=== PATIENT | female | born 1985 | race Caucasian/White ===

== ENCOUNTER → 2016-05-12 | Outpatient (CLI) | payer OTHER ==
[~2016-05-12] MED LIST: ACET50TA PO; ANUS2.5C2 TOP; DOCU10ELUD PO; IBUP600T26 PO; MOM30SS PO; PRENTAB74 PO
[2016-05-12 19:00] LABS: PROLACTIN 6.2 NG/ML
[2016-05-12 19:24] LABS: FREE T4 0.91 NG/DL (0.76-1.46)
== END ==
LOC: M WUC 14:31
PROVIDERS: ATTEND Nurse Practitioner Women's Health
DX: N92.1 Excessive and frequent menstruation with irregular cycle (principal)

== ENCOUNTER → 2016-12-22 | Outpatient (REF) | payer OTHER | LOC: M LAB REF 12:04 | PROVIDERS: ATTEND Physician Assistant | DX: N39.0 Urinary tract infection, site not specified (principal) ==

== ENCOUNTER → 2017-01-13 | Outpatient (CLI) | payer OTHER ==
--- NOTE | 2017-01-13 09:57 | REP ---
Clinical: Chronic sinusitis. Technique: Rubio, Chow, lateral, and SMV views. Findings: Paranasal sinuses are well aerated and clear. No mucosal thickening or fluid levels are appreciated. The surrounding osseous structures are intact. Impression: Normal sinus radiograph series. Signed by Silver Vu MD 01/13/2017 09:48 A
== END ==
LOC: M WUC 08:43
PROVIDERS: ATTEND Nurse Practitioner Adult Health
DX: J32.9 Chronic sinusitis, unspecified (principal)

== ENCOUNTER → 2017-02-15 | Outpatient (REF) | payer OTHER | LOC: M LAB REF 17:51 | PROVIDERS: ATTEND Obstetrics & Gynecology | DX: Z11.3 Encounter for screening for infections with a predominantly sexual mode of transmission (principal) ==

== ENCOUNTER → 2017-02-24 | Outpatient (CLI) | payer OTHER | LOC: M RAD 12:15 | DX: R10.2 Pelvic and perineal pain (principal) ==

== ENCOUNTER → 2017-04-17 | Outpatient (CLI) | payer OTHER | LOC: M RAD 10:00 | DX: N83.209 Unspecified ovarian cyst, unspecified side (principal) | CPT/HCPCS: 76856 ==

== ENCOUNTER → 2017-07-03 | Outpatient (REF) | payer OTHER ==
[2017-07-06 14:15] LABS: HPV HYBRID CAPTURE II Negative (Negative)
== END ==
LOC: M LAB REF 19:15
DX: Z12.4 Encounter for screening for malignant neoplasm of cervix (principal); R87.612 Low grade squamous intraepithelial lesion on cytologic smear of cervix (LGSIL)

== ENCOUNTER → 2017-07-11 | Outpatient (REF) | payer OTHER | LOC: M LAB REF 17:28 | DX: R87.612 Low grade squamous intraepithelial lesion on cytologic smear of cervix (LGSIL) (principal) | CPT/HCPCS: 88304 ==

== ENCOUNTER → 2018-06-29 | Outpatient (REF) | payer OTHER ==
[~2018-06-29] MED LIST changes: -ACET50TA PO; -DOCU10ELUD PO; +DOCU5LIQ PO; +MAPA500T17 PO
== END ==
LOC: M LAB REF 10:41
PROVIDERS: ATTEND Physician Assistant Medical
DX: R10.9 Unspecified abdominal pain (principal)

== ENCOUNTER → 2018-08-03 | Outpatient (REF) | payer OTHER ==
[2018-08-08 00:07] LABS: HPV HYBRID CAPTURE II Negative (Negative)
== END ==
LOC: M LAB REF 17:33
PROVIDERS: ATTEND Obstetrics & Gynecology
DX: Z12.4 Encounter for screening for malignant neoplasm of cervix (principal)

== ENCOUNTER → 2018-08-03 | Outpatient (CLI) | payer OTHER ==
[2018-08-03 21:11] LABS: CHLAMYDIA DNA AMPLIFICATION NEGATIVE (NEGATIVE); GC DNA AMPLIFICATION NEGATIVE (NEGATIVE)
[2018-08-03 23:00] LABS: HIV 1&2 SCREEN CENTAUR NEGATIVE (NEGATIVE)
[2018-08-06 11:33] LABS: HEPATITIS A ANTIBODY IGM NEGATIVE (NEGATIVE); HEPATITIS B CORE ANTIBODY IGM NEGATIVE (NEGATIVE); HEPATITIS B SURFACE ANTIGEN NEGATIVE (NEGATIVE); HEPATITIS C VIRUS ABY INDEX < 0.0 INDEX (<0.8)
== END ==
LOC: M SMT 14:36
PROVIDERS: ATTEND Obstetrics & Gynecology
DX: Z11.3 Encounter for screening for infections with a predominantly sexual mode of transmission (principal)

== ENCOUNTER → 2019-05-09 | Outpatient (CLI) | payer OTHER | LOC: M WHC 12:28 | PROVIDERS: ATTEND Obstetrics & Gynecology | DX: R10.2 Pelvic and perineal pain (principal) ==

== ENCOUNTER → 2019-05-09 | Outpatient (REF) | payer OTHER ==
[2019-05-10 00:54] LABS: CHLAMYDIA DNA AMPLIFICATION NEGATIVE (NEGATIVE); GC DNA AMPLIFICATION NEGATIVE (NEGATIVE)
== END ==
LOC: M SFHCWAGY 18:20
PROVIDERS: ATTEND Obstetrics & Gynecology
DX: R10.2 Pelvic and perineal pain (principal)

== ENCOUNTER → 2019-05-16 | Outpatient (CLI) | payer OTHER ==
--- NOTE | 2019-05-16 20:46 | REP ---
Clinical: Pelvic pain. Technique: Transabdominal pelvic ultrasound followed by transvaginal examination for better evaluation of the endometrium and adnexa with color evaluation of the ovaries. 3-D sonographic images obtained. Comparison: 04/17/2017. Findings: Normal anteverted uterus measures 8.8 x 3.7 x 5.0 cm. Endometrial complex measures 4.3 mm thickness. No discrete uterine or endometrial abnormalities appreciated. IUD identified in central satisfactory position based on 3-D imaging. Bilateral ovaries are normal in vascularity without torsion. Right ovary measures 3.3 x 2.0 x 1.8 cm and appears normal. Left ovary measures 4.5 x 2.2 x 3.4 cm and includes 2.6 x 1.4 x 2.0 cm presumed physiologic cyst / follicle. No pelvic fluid or adnexal mass lesion. Impression: Normal uterus with IUD in satisfactory position. Involuting physiologic cyst / dominant follicle in the left ovary. Electronically Signed by Silver Vu MD 05/16/2019 08:37 P
== END ==
LOC: M WHC 09:24
PROVIDERS: ATTEND Obstetrics & Gynecology
DX: N83.02 Follicular cyst of left ovary (principal); Z97.5 Presence of (intrauterine) contraceptive device

== ENCOUNTER → 2019-08-07 | Outpatient (REF) | payer OTHER | LOC: M SFHCWAGY 17:53 | PROVIDERS: ATTEND Obstetrics & Gynecology | DX: Z01.419 Encounter for gynecological examination (general) (routine) without abnormal findings (principal); Z12.4 Encounter for screening for malignant neoplasm of cervix ==

== ENCOUNTER 2020-11-05 03:49 | Emergency (ER) | payer BC, OTHER ==
[~2020-11-05] VITALS: Ht 157.5 cm; Wt 79.2 kg
[2020-11-05 09:46] LABS: BASO # 0.1 10^3/uL (0.0-0.2); BASO % 0.8 % (0.0-1.0); EOS # 0.2 10^3/uL (0.0-0.5); EOS % 1.6 % (0.0-3.0); HEMATOCRIT 38.7 % (36.0-47.0); LYMPH # 1.8 10^3/uL (1.5-5.0); LYMPH % 17.6 % (24.0-44.0); MEAN CORPUSCULAR HEMOGLOBIN 31.6 pg (27.0-33.0); MEAN CORPUSCULAR HGB CONC 33.6 g/dl (32.0-36.5); MEAN CORPUSCULAR VOLUME 93.9 fl (80.0-96.0); MONO # 0.9 10^3/uL (0.0-0.8); MONO % 8.9 % (2.0-8.0); NEUTROPHILS # 7.4 10^3/uL (1.5-8.5); NEUTROPHILS % 70.7 % (36.0-66.0); PLATELET COUNT, AUTOMATED 213 10^3/uL (150-450); RED BLOOD COUNT 4.12 10^6/uL (4.00-5.40); WHITE BLOOD COUNT 10.5 10^3/uL (4.0-10.0)
--- NOTE | 2020-11-05 10:05 | REP ---
INDICATION: lower abd pain, h/o ovarian cysts. COMPARISON: 05/16/2019. TECHNIQUE: Transabdominal and transvaginal scanning performed. FINDINGS: Uterine dimensions are 8.2 x 4.8 x 5.5 cm. Endometrial echo is 3 mm in AP dimension and centrally placed. IUD is seen in the superior endometrial canal. The bladder measures 3.9 x 3.4 x 9.6cm. The right ovary has dimensions of 3.0 x 1.5 x 2.0 cm. It's Doppler flow is normal with a resistive index of 0.81. The left ovary dimensions are 4.6 x 3.5 x 4.6 cm. It's Doppler flow was normal with resistive index of 0.39. There is a mildly heterogeneous, mildly hyperechoic mass involving the left ovary, measuring 4.4 x 3.2 x 4.1 cm. No free fluid is seen in the cul-de-sac. IMPRESSION: No torsion or free fluid. There is a mildly heterogeneous, mildly hyperechoic mass involving the left ovary, measuring 4.4 x 3.2 x 4.1 cm. Differential diagnosis would include hemorrhagic cyst and endometrioma. This is new when compared to the prior exam. Recommend follow-up ultrasound in 6-12 weeks. <Electronically signed by Maycol Hernandez > 11/05/20 1002
[2020-11-05 10:09] LABS: ALBUMIN 3.8 GM/DL (3.2-5.2); ALT/SGPT 35 U/L (12-78); BILIRUBIN,DIRECT 0.3 MG/DL (0.0-0.2); BILIRUBIN,TOTAL 1.2 MG/DL (0.2-1.0); BLOOD UREA NITROGEN 9 MG/DL (7-18); CALCIUM LEVEL 9.2 MG/DL (8.5-10.1); CARBON DIOXIDE LEVEL 28 MEQ/L (21-32); CHLORIDE LEVEL 109 MEQ/L (98-107); CREATININE FOR GFR 0.54 MG/DL (0.55-1.30); GLOMERULAR FILTRATION RATE > 60.0 (>60); GLUCOSE, FASTING 88 MG/DL (70-100); LIPASE 63 U/L (73-393); SODIUM LEVEL 140 MEQ/L (136-145); TOTAL PROTEIN 6.9 GM/DL (6.4-8.2)
--- NOTE | 2020-11-05 10:19 | REP ---
INDICATION: r/o constipation. COMPARISON: None. TECHNIQUE: KUB: Two views provided. FINDINGS: Supine views of the abdomen demonstrate an IUD in the pelvis. Bowel gas pattern is normal. Flank stripes are intact. Psoas margins appear symmetric. No mass, organomegaly, or pathologic calcification is seen. There are phleboliths in the left side of the pelvis. Umbilical jewelry is noted incidentally. IMPRESSION: Negative KUB. There is no radiographic evidence to suggest constipation. <Electronically signed by Nathaniel Douglas > 11/05/20 0718
[2020-11-05] MEDS ORDERED: ONDA4TAB6 PO (11:27)
[2020-11-05] MEDS ORDERED: COLA100C5 PO (11:27)
[2020-11-05 11:37] VITALS: BP 109/64
== END 2020-11-05 11:44 | disposition home or self-care (01) ==
LOC: M ED 03:49
DX: N83.202 Unspecified ovarian cyst, left side (principal); E80.6 Other disorders of bilirubin metabolism; N80.9 Endometriosis, unspecified; Z87.448 Personal history of other diseases of urinary system; Z86.16 Personal history of COVID-19; F32.9 Major depressive disorder, single episode, unspecified; Z97.5 Presence of (intrauterine) contraceptive device; Z88.2 Allergy status to sulfonamides

== ENCOUNTER → 2020-11-16 | Outpatient (REF) | payer BC ==
[~2020-11-16] MED LIST changes: +COLA100C5 PO; +ONDA4TAB6 PO
== END ==
LOC: M SFHCWAGY 13:17
PROVIDERS: ATTEND Obstetrics & Gynecology
DX: Z12.4 Encounter for screening for malignant neoplasm of cervix (principal); Z01.419 Encounter for gynecological examination (general) (routine) without abnormal findings; Z77.9 Other contact with and (suspected) exposures hazardous to health

== ENCOUNTER → 2020-11-23 | Outpatient (REF) | payer BC ==
[2020-11-23 18:38] LABS: HEMATOCRIT 39.8 % (36.0-47.0); HEMOGLOBIN 13.3 g/dl (12.0-15.5); MEAN CORPUSCULAR HEMOGLOBIN 31.7 pg (27.0-33.0); MEAN CORPUSCULAR HGB CONC 33.4 g/dl (32.0-36.5); MEAN CORPUSCULAR VOLUME 94.8 fl (80.0-96.0); PLATELET COUNT, AUTOMATED 244 10^3/uL (150-450); WHITE BLOOD COUNT 7.5 10^3/uL (4.0-10.0)
[2020-11-23 19:13] LABS: ALT/SGPT 21 U/L (12-78); BILIRUBIN,TOTAL 0.6 MG/DL (0.2-1.0); BLOOD UREA NITROGEN 17 MG/DL (7-18); CALCIUM LEVEL 9.4 MG/DL (8.5-10.1); CARBON DIOXIDE LEVEL 32 MEQ/L (21-32); CHLORIDE LEVEL 105 MEQ/L (98-107); CREATININE FOR GFR 0.77 MG/DL (0.55-1.30); FERRITIN 52 NG/ML (8-252); GLOMERULAR FILTRATION RATE > 60.0 (>60); GLUCOSE, FASTING 96 MG/DL (70-100); IRON (FE) 84 UG/DL (50-170); PERCENT SATURATION 27.9 % (13.2-45.0); POTASSIUM SERUM 4.4 MEQ/L (3.5-5.1); SODIUM LEVEL 138 MEQ/L (136-145); TOTAL IRON BINDING CAPACITY 301 UG/DL (250-450); TOTAL PROTEIN 7.1 GM/DL (6.4-8.2)
== END ==
LOC: M SFHCADAM 13:55
PROVIDERS: ATTEND Physician Assistant
DX: R79.9 Abnormal finding of blood chemistry, unspecified (principal); D50.8 Other iron deficiency anemias; R53.83 Other fatigue

== ENCOUNTER → 2020-12-30 | Outpatient (CLI) | payer BC ==
[~2020-12-30] MED LIST changes: +MIRE1IUD IU; +VITMTA PO
== END ==
LOC: M LABSMTC 09:58
PROVIDERS: ATTEND Anesthesiology
DX: Z01.818 Encounter for other preprocedural examination (principal); Z11.52 Encounter for screening for COVID-19

== ENCOUNTER 2021-01-04 06:16 | Day surgery (SDC) | payer BC ==
[~2021-01-04] VITALS: Ht 157.5 cm; Wt 76.7 kg
[~2021-01-04 06:16] MED LIST changes: +LIDOCAINE 1% MDV 20ML VIAL SQ PRN; +LR 1,000 ML IV ONE; +ceFAZolin SOD 2 GM in IV 1 EA IV ONE
--- OUTSIDE RECORDS SUMMARY | 2021-01-04 06:20 | CCD ---
Author Author [facility] Organization [facility] Address Unknown Phone Unavailable Care Team Providers Care Biosolids Management Technician Name Role Phone Judy Schultz Unavailable PROBLEMS Type Condition ICD9-CM Code [id number] Code Onset Dates Condition S tatus W/U Status Risk SNOMED Code Notes Problem Annual physical exam Z00.00 Active confirmed 602726528 Problem Iron deficiency anemia secondary to inadequate d ietary iron intake D50.8 Active confirmed 243875657 CBC and iron l evels are within normal limits Problem Bleeding after intercourse N93.0 Active confirmed 61868831 Problem Dyspareunia due to medical condition in female N94 .19 Active confirmed 88906701 ALLERGIES Allergen (clinical drug ingredient) Drug/Non Drug Allergy do cumented on EMR Reaction Allergy Type Onset Date Status Sulfa drugs hives Non Drug Allergy Active ENCOUNTERS from 1986 to 2020-11-30 Encounter Location Date Provider Diagnosis [facility] [phone] [place] [address] Oct, [facility] Gynecologic exam nor mal Z01.419 ; Pelvic pain R10.2 ; Dyspareunia due to medical condition in female N94.19 and Screening for malignant neoplasm of cervix Z12.4 IMMUNIZATIONS No Information SOCIAL HISTORY Tobacco Use: Social History Observation Description Date Details (start date - stop date) Never Smoker Sex Assigned At : Social History Observation Description Sex Assigned At Unknown Education: Question Answer Notes Level of Education: High School Audit Question Answer Notes Total Score: 1 Interpretation: Alcohol Education Language: Question Answer Notes Languages spoken: Albanian Drug and Alcohol Question Answer Notes Total Score: 0 Interpretation: No problems reported Alcohol Screening: Question Answer Notes Did you have a drink containing alcohol in the past year? Ye s Points 1 Interpretation Negative How often did you have six or more drinks on one occas ion in the past year? Never (0 points) How many drinks did you have on a typica l day when you were drinking in the past year? 3 or 4 (1 point) How often did you have a drink containing alcohol in t he past year? Never (0 points) Tobacco Use: Question Answer Notes Are you a: never smoker REASON FOR REFERRAL No Information VITAL SIGNS Weight 177.6 lbs Oct, Weight-kg 80.56 kg Oct, Height 62 in Oct, BMI 32.48 kg/m2 Oct, Blood pressure systolic 128 mm Hg Oct, Blood pressure diastolic 86 mm Hg Oct, MEDICATIONS Medication SIG (Take, Route, Frequency, Duration) Notes Start Da te End Date Status Multi Complete - 1 cap orally Daily Active Colace 100 MG 1 capsule as needed Orally Once a day Active Hair Skin Nails - 1 cap Orally Daily Not-Taking Tylenol 325 MG 1 capsule as needed Orally every 6 hrs Active ZyrTEC Allergy 10 MG 1 tablet Orally Once a day for 30 day(s) Active Meloxicam 15 MG 1 tablet Orally Once a day for 30 day(s) 2 5 Mar, 2020 Not-Taking Mirena Active Ibuprofen 400 MG 1 tablet with food or milk as needed Ora lly Three times a day Active PROCEDURES No Information RESULTS No Results REASON FOR VISIT annual MEDICAL (GENERAL) HISTORY Type Description Date Medical History asthma Medical History seasonal allergies Medical History depression Surgical History wrist surgery cyst removal, this came [place] [facility] [place]note 2[place] back. 2004 Hospitalization History childbirth 2012 Goals Section No Information Health Concerns No Information MEDICAL EQUIPMENT No Information MENTAL STATUS No Information FUNCTIONAL STATUS No Information ASSESSMENTS Encounter Date Diagnosis Assessment Notes Treatment Notes Treatm ent Clinical Notes Oct, Gynecologic exam normal (ICD-10 - Z01.419) Oct, Pelvic pain (ICD-10 - R10.2) Patient was counseled on treatment options for chronic pelvic pain/dyspareunia. She expressed desire no longer medical management with Mirena IUD as this has been unable to control her pain. She is adamant about proceeding with hysterectomy without BSO. I discussed risk with surgery and after consultation patient desires to proceed with hysterectomy Oct, Dyspareunia due to medical condition in female ( ICD-10 - N94.19) Oct, Screening for malignant neoplasm of cervix (ICD- 10 - Z12.4) PLAN OF TREATMENT Treatment Notes Assessment Notes Clinical Notes Pelvic pain Patient was counsele d on treatment options for chronic pelvic pain/dyspareunia. She expressed desire no longer medical management with Mirena IUD as this has been unable to control her pain. She is adamant about proceeding with hysterectomy without BSO. I discussed risk with surgery and after consultation patient desires to proceed with hysterectomy Treatment Notes Test Name Order Date PAP REQUEST FOR SERVICE 2020-11-16 Next Appt Details Provider Name:Judy Schultz, 2020-12-23 1 1:20:00 AM, [address] [facility], , [place], [address], Provider Name:Yeni Martino, 2021-04-08 09:30:00 AM, [address], , [place], [address], Insurance Providers Payer Name Payer Address Payer Phone Insured Name Patient Relati onship to Insured Coverage Start Date [facility]age End Date [facility] [address] [facility] [id number] [place] self
--- OUTSIDE RECORDS SUMMARY | 2021-01-04 06:20 | CCD ---
Author Author [facility] Organization [facility] Address Unknown Phone Unavailable Care Team Providers Care Supervisor Felling Bucking Name Role Phone Yeimy Garcia Unavailable PROBLEMS Type Condition ICD9-CM Code [id number] Code Onset Dates Condition S tatus W/U Status Risk SNOMED Code Notes Problem Annual physical exam Z00.00 Active confirmed 849739103 Problem Iron deficiency anemia secondary to inadequate d ietary iron intake D50.8 Active confirmed 875493460 CBC and iron l evels are within normal limits Problem Bleeding after intercourse N93.0 Active confirmed 96964325 Problem Dyspareunia due to medical condition in female N94 .19 Active confirmed 44086664 ALLERGIES Allergen (clinical drug ingredient) Drug/Non Drug Allergy do cumented on EMR Reaction Allergy Type Onset Date Status Sulfa drugs hives Non Drug Allergy Active ENCOUNTERS from 1986 to 2020-11-29 Encounter Location Date Provider Diagnosis [address] [place] [address] Oct, Yeimy Garcia Abnormal blood chemistry R79.9 ; Ovarian mass N83.8 ; Iron deficiency anemia secondary to inadequate dietary iron intake D50.8 and Fatigue, unspecified type R53.83 IMMUNIZATIONS No Information SOCIAL HISTORY Tobacco Use: Social History Observation Description Date Details (start date - stop date) Never Smoker Sex Assigned At : Social History Observation Description Sex Assigned At Unknown Education: Question Answer Notes Level of Education: High School Audit Question Answer Notes Total Score: 1 Interpretation: Alcohol Education Language: Question Answer Notes Languages spoken: Rwandan Drug and Alcohol Question Answer Notes Total [...] FOR REFERRAL No Information VITAL SIGNS Weight 175 lbs Oct, Height 62 in Oct, BMI 32.00 kg/m2 Oct, Heart Rate 64 /min Oct, Respiratory Rate 18 /min Oct, Temperature 98.7 degrees Fahrenheit Oct, Oximetry 100 Oct, Blood pressure systolic 118 mm Hg Oct, Blood pressure diastolic 68 mm Hg Oct, MEDICATIONS Medication SIG (Take, [...] Information RESULTS No Results REASON FOR VISIT [facility] ER/ hemorrage cyst and bilinrubin levels high MEDICAL (GENERAL) HISTORY Type Description Date Medical History asthma Medical History seasonal allergies Medical History depression Surgical History wrist surgery cyst removal, [facility]. 2004 Hospitalization History childbirth 2012 Goals Section No Information Health Concerns No Information MEDICAL EQUIPMENT No Information MENTAL STATUS No Information FUNCTIONAL STATUS No Information ASSESSMENTS Encounter Date Diagnosis Assessment Notes Treatment Notes Treatm ent Clinical Notes Oct, Abnormal blood chemistry (ICD-10 - R79.9 ) The bilirubin is borderline elevated, and we have rechecked that today and it is back at goal Oct, Ovarian mass (ICD-10 - N83.8) She will follow-up with her DIE STORAGE CLERK Oct, Iron deficiency anemia secfelisha freida to inadequate dietary iron intake (ICD-10 - D50.8) CBC and iron levels are within normal limits Oct, Fatigue, unspecified type (ICD-10 - R53. 83) Blood work reveals no thyroid issues, no anemia, and all normal blood work. She will discuss the fatigue with her PCP PLAN OF TREATMENT Treatment Notes Test Name Order Date Comprehensive Metabolic Profile (CMP) 2020-11-23 CBC - Complete Blood Count 2020-11-23 TOTAL IRON BINDING CAPACIT 2020-11-23 TSH 2020-11-23 FERRITIN 2020-11-23 Next Appt Details With DIE STORAGE CLERK and PCP Reason: Provider Name:Judy Schultz, 2020-12-23 1 1:20:00 AM, [address] [facility], , [place], [address], Provider Name:Yeni Martino, 2021-04-08 09:30:00 AM, [address], , [place], [address], Insurance Providers Payer Name Payer Address Payer Phone Insured Name Patient Relati onship to Insured Coverage Start Date Coverage End Date [facility] [employer] ALLIANCE [id number] [facility] [id number] [place] [employer] self
--- OUTSIDE RECORDS SUMMARY | 2021-01-04 06:20 | CCD ---
Author Author [facility] Organization [facility] Address Unknown Phone Unavailable Care Team Providers Care Barbering Teacher Name Role Phone Antoine Judy Unavailable PROBLEMS Type Condition ICD9-CM Code [id number] Code Onset Dates Condition S tatus W/U Status Risk SNOMED Code Notes Problem Annual physical exam Z00.00 Active confirmed 029078569 Problem Iron deficiency anemia secondary to inadequate d ietary iron intake D50.8 Active confirmed 075004791 CBC and iron l evels are within normal limits Problem Bleeding after intercourse N93.0 Active confirmed 38714633 Problem Dyspareunia due to medical condition in female N94 .19 Active confirmed 52329218 ALLERGIES Allergen (clinical drug ingredient) Drug/Non Drug Allergy do cumented on EMR Reaction Allergy Type Onset Date Status Sulfa drugs hives Non Drug Allergy Active ENCOUNTERS from 1986 to 2020-12-03 Encounter Location Date Provider Diagnosis [facility] Women[facility] Wellness and [facility] [phone] [place] [address] Nov, [facility] IMMUNIZATIONS No Information SOCIAL HISTORY Tobacco Use: Social History Observation Description Date Details (start date - stop date) Never Smoker Sex Assigned At : Social History Observation Description Sex Assigned At Unknown Education: Question Answer Notes Level of Education: High School Audit Question Answer Notes Total Score: 1 Interpretation: Alcohol Education Language: Question Answer Notes Languages spoken: Syriac Drug and Alcohol Question Answer Notes Total [...] REASON FOR REFERRAL No Information VITAL SIGNS No information MEDICATIONS Medication SIG (Take, Route, Frequency, Duration) [...] Information RESULTS No Results REASON FOR VISIT 01/04/21 SURG AUTH MEDICAL (GENERAL) HISTORY Type Description Date Medical History asthma Medical History seasonal allergies Medical History depression Surgical History wrist surgery cyst removal, this came ri t back. 2005 Hospitalization History childbirth 2012 Goals Section No Information Health Concerns No Information MEDICAL EQUIPMENT No Information MENTAL STATUS No Information FUNCTIONAL STATUS No Information ASSESSMENTS No Information PLAN OF TREATMENT Next Appt Details Provider Name:Judy Geneva Antoine, 2020-12-23 1 1:20:00 AM, [address] [place] [address], [place], [place], [address] [place] [address], Provider Name:Judy Schultz 2021-01-04 0 7:30:00 AM, [address] [place], [place] [address], [place], [place], [address] [place] [address], Provider Name:Judy Schultz 2021-01-19 1 1:40:00 AM, [address] [place] [address], [place], [place], [address] [place] [address], Provider Name:Judy Schultz 2021-02-10 0 8:20:00 AM, [address] [place] [address], [place], [place], [address] [place] [address], Provider Name:Yeni Martino, 2021-04-08 09:30:00 AM, [address] , , [place], [address], Insurance Providers Payer Name Payer Address Payer Phone Insured Name Patient Relati onship to Insured Coverage Start Date Coverage End Date [facility] ALLIANCE [id number] [facility] [id number] [place] self
--- OUTSIDE RECORDS SUMMARY | 2021-01-04 06:20 | CCD ---
Author Author [facility] Organization [facility] Address Unknown Phone Unavailable Care Team Providers Care Gas Check Pad Maker Name Role Phone MezaKrista Vy Unavailable Meza, N Vy Unavailable Meza, N Vy Unavailable Meza, N Vy Unavailable Meza, N Vy Unavailable Meza, N Vy Unavailable Meza, N Vy Unavailable Meza, N Vy Unavailable Meza, N Vy Unavailable Meza, N Vy Unavailable Meza, N Vy Unavailable Meza, N Vy Unavailable Meza, N Vy Unavailable Meza, N Vy Unavailable Meza, N Vy Unavailable Meza, N Vy Unavailable Meza, N Vy Unavailable Meza, N Vy Unavailable Mzea, N Vy Unavailable Meza, N Vy Unavailable Meza, N Vy Unavailable Meza, N Vy Unavailable Meza, N Vy Unavailable Meza, N Vy Unavailable Meza, N Vy Unavailable Meza, N Vy Unavailable Meza, N Vy Unavailable Meza, N Vy Unavailable Meza, N Vy Unavailable Meza, N Vy Unavailable Meza, N Vy Unavailable Meza, N Vy Unavailable Meza, N Vy Unavailable Meza, N Vy Unavailable Meza, N Vy Unavailable Meza, N Vy Unavailable Meza, N Vy Unavailable Meza, N Vy Unavailable Meza, N Vy Unavailable Meza, N Vy Unavailable Anjali Hernandez NP Unavailable Unavailable Hernandez, Anjali EP TECH Unavailable Unavailable Hernandez, Anjali EP TECH Unavailable Unavailable Hernandez, Anjali EP TECH Unavailable Unavailable Hernandez, Anjali EP TECH Unavailable Unavailable Hernandez, Anjali EP TECH Unavailable Unavailable Hernandez, Anjali EP TECH Unavailable Unavailable Hernandez, Anjali EP TECH Unavailable Unavailable Hernandez, Anjali EP TECH Unavailable Unavailable Hernandez, Anjali EP TECH Unavailable Unavailable Hernandez, Anjali EP TECH Unavailable Unavailable Hernandez, Anjali EP TECH Unavailable Unavailable Hernandez, Anjali EP TECH Unavailable Unavailable REJI (GIBSON), N AIXA RPA-C Unavailable Unavailable REJI (GIBSON), N AIXA RPA-C Unavailable Unavailable REJI (GIBSON), N AIXA RPA-C Unavailable Unavailable REJI (GIBSON), N AIXA RPA-C Unavailable Unavailable REJI (GIBSON), N AIXA RPA-C Unavailable Unavailable REJI (GIBSON), N AIXA RPA-C Unavailable Unavailable REJI (GIBSON), N AIXA RPA-C Unavailable Unavailable REJI (GIBSON), N AIXA RPA-C Unavailable Unavailable REJI (GIBSON), N AIXA RPA-C Unavailable Unavailable REJI (GIBSON), N AIXA RPA-C Unavailable Unavailable REJI (GIBSON), N AIXA RPA-C Unavailable Unavailable REJI (GIBSON), N AIXA RPA-C Unavailable Unavailable REJI (GIBSON), N AIXA RPA-C Unavailable Unavailable REJI (GIBSON), N AIXA RPA-C Unavailable Unavailable REJI (GIBSON), N AIXA RPA-C Unavailable Unavailable REJI (GIBSON), N AIXA RPA-C Unavailable Unavailable REJI (GIBSON), N AIXA RPA-C Unavailable Unavailable REJI (GIBSON), N AIXA RPA-C Unavailable Unavailable REJI (GIBSON), N AIXA RPA-C Unavailable Unavailable REJI (GIBSON), N AIXA RPA-C Unavailable Unavailable REJI (GIBSON), N AIXA RPA-C Unavailable Unavailable REJI (GIBSON), N AIXA RPA-C Unavailable Unavailable REJI (GIBSON), N AIXA RPA-C Unavailable Unavailable REJI (GIBSON), N AIXA RPA-C Unavailable Unavailable REJI (GIBSON), N AIXA RPA-C Unavailable Unavailable REJI (GIBSON), N AIXA RPA-C Unavailable Unavailable REJI (GIBSON), N AIXA RPA-C Unavailable Unavailable REJI (GIBSON), N AIXA RPA-C Unavailable Unavailable REJI (GIBSON), N AIXA RPA-C Unavailable Unavailable REJI (GIBSON), N AIXA RPA-C Unavailable Unavailable REJI (GIBSON), N AIXA RPA-C Unavailable Unavailable REJI (GIBSON), N AIXA RPA-C Unavailable Unavailable REJI (GIBSON), N AIXA RPA-C Unavailable Unavailable REJI (GIBSON), N AIXA RPA-C Unavailable Unavailable REJI (GIBSON), N AIXA RPA-C Unavailable Unavailable REJI (GIBSON), N AIXA RPA-C Unavailable Unavailable REJI (GIBSON), N AIXA RPA-C Unavailable Unavailable REJI (GIBSON), N AIXA RPA-C Unavailable Unavailable REJI (GIBSON), N AIXA RPA-C Unavailable Unavailable REJI (GIBSON), N AIXA RPA-C Unavailable Unavailable REJI (GIBSON), N AIXA RPA-C Unavailable Unavailable REJI (GIBSON), N AIXA RPA-C Unavailable Unavailable REJI (GIBSON), N AIXA RPA-C Unavailable Unavailable REJI (GIBSON), N AIXA RPA-C Unavailable Unavailable REJI (GIBSON), N AIXA RPA-C Unavailable Unavailable REJI (GIBSON), N AIXA RPA-C Unavailable Unavailable REJI (GIBSON), N AIXA RPA-C Unavailable Unavailable REJI (GIBSON), N AIXA RPA-C Unavailable Unavailable REJI (GIBSON), N AIXA RPA-C Unavailable Unavailable REJI (GIBSON), N AIXA RPA-C Unavailable Unavailable REJI (GIBSON), N AIXA RPA-C Unavailable Unavailable REJI (GIBSON), N AIXA RPA-C Unavailable Unavailable REJI (GIBSON), N AIXA RPA-C Unavailable Unavailable REJI (GIBSON), N AIXA RPA-C Unavailable Unavailable REJI (GIBSON), N AIXA RPA-C Unavailable Unavailable REJI (GIBSON), N AIXA RPA-C Unavailable Unavailable REJI (GIBSON), N AIXA RPA-C Unavailable Unavailable Castellon, Rosa Olsen PA Unavailable Unavailable Castellon, Rosa Olsen PA Unavailable Unavailable Castellon, Rosa Olsen PA Unavailable Unavailable Castellon, Rosa Olsen PA Unavailable Unavailable Castellon, Rosa Olsen PA Unavailable Unavailable Castellon, Rosa Olsen PA Unavailable Unavailable Castellon, Rosa Olsen PA Unavailable Unavailable Castellon, Rosa Olsen PA Unavailable Unavailable Castellon, Rosa Olsen PA Unavailable Unavailable Castellon, Rosa Olsen PA Unavailable Unavailable MCMILLAN, G EDWARD RPA Unavailable Unavailable MCMILLAN, G EDWARD RPA Unavailable Unavailable MCMILLAN, G EDWARD RPA Unavailable Unavailable MCMILLAN, G EDWARD RPA Unavailable Unavailable MCMILLAN, G EDWARD RPA Unavailable Unavailable MCMILLAN, G EDWARD RPA Unavailable Unavailable MCMILLAN, G EDWARD RPA Unavailable Unavailable MCMILLAN, G EDWARD RPA Unavailable Unavailable MCMILLAN, G EDWARD RPA Unavailable Unavailable MCMILLAN, G EDWARD RPA Unavailable Unavailable MCMILLAN, G EDWARD RPA Unavailable Unavailable MCMILLAN, G EDWARD RPA Unavailable Unavailable MCMILLAN, G EDWARD RPA Unavailable Unavailable MCMILLAN, G EDWARD RPA Unavailable Unavailable MCMILLAN, G EDWARD RPA Unavailable Unavailable MCMILLAN, G EDWARD RPA Unavailable Unavailable MCMILLAN, G EDWARD RPA Unavailable Unavailable MCMILLAN, G EDWARD RPA Unavailable Unavailable MCMILLAN, G EDWARD RPA Unavailable Unavailable MCMILLAN, G EDWARD RPA Unavailable Unavailable MCMILLAN, G EDWARD RPA Unavailable Unavailable MCMILLAN, G EDWARD RPA Unavailable Unavailable MCMILLAN, G EDWARD RPA Unavailable Unavailable MCMILLAN, G EDWARD RPA Unavailable Unavailable MCMILLAN, G EDWARD RPA Unavailable Unavailable MCMILLAN, G EDWARD RPA Unavailable Unavailable MCMILLAN, G EDWARD RPA Unavailable Unavailable MCMILLAN, G EDWARD RPA Unavailable Unavailable MCMILLAN, G EDWARD RPA Unavailable Unavailable MCMILLAN, G EDWARD RPA Unavailable Unavailable MCMILLAN, G EDWARD RPA Unavailable Unavailable MCMILLAN, G EDWARD RPA Unavailable Unavailable MCMILLAN, G EDWARD RPA Unavailable Unavailable MCMILLAN, G EDWARD RPA Unavailable Unavailable MCMILLAN, G EDWARD RPA Unavailable Unavailable MCMILLAN, G EDWARD RPA Unavailable Unavailable MCMILLAN, G EDWARD RPA Unavailable Unavailable Re-disclosure Warning The records that you are about to access may contain information from federally-assisted alcohol or drug abuse programs. If such information is present, then the following federally mandated warning applies: This information has been disclosed to you from records protected by federal confidentiality rules (42 CFR part 2). The federal rules prohibit you from making any further disclosure of this information unless further disclosure is expressly permitted by the written consent of the person to whom it pertains or as otherwise permitted by 42 CFR part 2. A general authorization for the release of medical or other information is NOT sufficient for this purpose. The Federal rules restrict any use of the information to criminally investigate or prosecute any alcohol or drug abuse patient.The records that you are about to access may contain highly sensitive health information, the redisclosure of which is protected by Article 27-F of the [facility] Public Health law. If you continue you may have access to information: Regarding HIV / AIDS; Provided by facilities licensed or operated by the [facility] Office of Mental Health; or Provided by the [facility] Office for People With Developmental Disabilities. If such information is present, then the following [facility] mandated warning applies: This information has been disclosed to you from confidential records which are protected by state law. State law prohibits you from making any further disclosure of this information without the specific written consent of the person to whom it pertains, or as otherwise permitted by law. Any unauthorized further disclosure in violation of state law may result in a fine or halfway sentence or both. A general authorization for the release of medical or other information is NOT sufficient authorization for further disc losure. Family History Family Member Name Family Member Gender Family Member Status Date o f Status Description Data Source(s) Unknown Unknown Problem MEDENT ([facility]) Unknown Unknown Problem MEDENT ([facility] Unknown Unknown Encounters Encounter Providers Location Date Indications Data Source(s ) Unknown [address] [id number] 12/03/2020 12:00:00 AM EDT eCW1 ([facility]) Outpatient [address] [address] 11/23/2020 12:00:00 AM EDT eCW1 ([facility]) Outpatient [address] [address] 11/16/2020 12:00:00 AM EDT eCW1 ([facility]) Outpatient Attender: CHYNA MCMILLAN RPA 08/14 06:58:33 PM EDT - 08/14/2020 07:13:27 PM EDT [facility] ([facility] ) Outpatient Attender: Vy MezaReferrer: AIXA NavarroALBURTIS) RPA-C 05/14/2020 12:32:49 PM EDT [facility] Recurring Patient Referrer: AIXA NavarroALBURTIS) [facility] 05/13/2020 12:43:23 PM EDT [facility] Recurring Patient Referrer: AIXA NavarroALBURTIS) [facility] 05/13/2020 07:22:39 AM EDT [facility] Recurring Patient Referrer: AIXA NavarroALBURTIS) [facility] 05/13/2020 07:19:57 AM EDT [facility] Recurring Patient Referrer: AIXA NavarroALBURTIS) [facility] 05/05/2020 10:03:49 AM EST [facility] Recurring Patient Referrer: AIXA NavarroALBURTIS) [facility] 04/28/2020 11:17:39 AM EST [facility] Outpatient [address] [id number] 04/23/2020 12:00:00 AM EST eCW1 ([facility]) Outpatient Attender: Anjali azul 04/06/2020 07:45:00 AM EST [facility] ([facility]) Outpatient Attender: Pretty barros 02/23/2020 12:50:00 PM EST MEDENT ([facility]) Medications Medication Brand Name Start Date Product Form Dose Route Admi nistrative Instructions Pharmacy Instructions Status Indications Reaction Description Data Source(s) meloxicam 15 MG Oral Tablet Meloxicam 15 MG Meloxicam 15 MG 04/23/2020 12:00:00 AM EST 1.0 {tablet} suspended Meloxica m 15 MG [facility] meloxicam 15 MG Oral Tablet Meloxicam 15 MG Meloxicam 15 MG 04/23/2020 12:00:00 AM EST 1.0 {tablet} suspended Meloxica m 15 MG eCW1 [facility]) meloxicam 15 MG Oral Tablet Meloxicam 15 MG Meloxicam 15 MG 04/23/2020 12:00:00 AM EST 1.0 {tablet} active Meloxicam 1 5 MG [facility]CW1 [facility]) meloxicam 15 MG Oral Tablet Meloxicam 15 MG Meloxicam 15 MG 04/23/2020 12:00:00 AM EST 1.0 {tablet} suspended Meloxica m 15 MG eCW1 [facility]) Amoxicillin 875 MG / Clavulanate 125 MG Oral Tablet Am oxicillin/Clavulanate Potassium 04/06/2020 12:00:00 AM EST ORAL active MEDENT ([facility], [facility]) Cephalexin 250 MG Oral Capsule Cephalexin 02/23/2020 12:00:00 AM EST completed MED[facility] ([facility]) Cephalexin 250 MG Oral Capsule Cephalexin 02/23/2020 12:00:00 AM EST completed MED[facility] ([facility]) Cephalexin 250 MG Oral Capsule Cephalexin 02/23/2020 12:00:00 AM EST completed MED[facility] ([facility]) Insurance Providers Payer name Policy type / Coverage type Policy ID Covered libertarian ID Covered libertarian's relationship to jimenez Policy Jimenez Plan Information [facility] Commercial F [id number] SELF [id number] [facility] Blue Cross and Blue Shield - [place] Blue [employer]/B lue Shield [id number] Self [id number] [place] 010/510 [id number] SP [id number] [employer] [place] 010/510 [id number] SP [id number] [facility] [id number] SP [id number] [facility] [id number] S [id number] [facility] [id number] SP [id number] [facility] Health Maintenance Organization (HMO) [id number] Self [id number] [facility] Commercial [id number] Self [id number] [facility] [id number] SELF [id number] [facility] Commercial [id number] Self [id number] [facility] O [id number] S [id number] [facility] Commercial [id number] Self [id number] [facility] O [id number] S [id number] [facility] Commercial [id number] Self [facility] PPO-O/P [id number] 18 [id number] [facility] [id number] SP [id number] [facility] [id number] SP [id number] Problems, Conditions, and Diagnoses Code Display Name Description Problem Type Effective Dates Data Source(s) D50.8 [id number] Iron deficiency anem ia secondary to inadequate dietary iron intake Problem 11/23/2020 12:00:00 AM EDT eCW1 ([facility]) Z00.00 [id number] Annual physical exam Problem 04/23/2020 12:0 0:00 AM EST eC ([facility]) Surgeries/Procedures No Information Results ID Date Data Source [id number] 05/14/2020 12:32:49 PM EDT [facility]: Chapo CanB: 1985Provider: Wong Meza: 05/13/2020 Reason For VisitChapo Can is here today for. Chapo has not had the Covid vaccine. Chapo Can is a new patient. The patient was notified that the office visit was recorded to enhance documentation accuracy. 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 History of Present IllnessCHIEF COMPLAINTLeft elbow pain.HISTORY OF PRESENT ILLNESSChapo Can is a 34-year-old objyc-vvjg-tqyxegna woman with no significant past medical history. She presents for an initial evaluation regarding her left elbow pain. The patient reports that she woke up with severe pain and numbness over the dorsal radial aspect of the left thumb in 11/2019. She denies any injury or trauma. Her left thumb numbness and tingling has minimally improved, but she continues to experience numbness and tingling sensation in the left thumb. She experiences intermittent pain in the radial aspect of her left wrist and posterior medial aspect of her left elbow. Her wrist pain is worse than her left elbow pain. She describes her pain as an achy and her pain occurs once a month. Her left wrist pain is aggravated with activities such as sweeping. The patient confirms that her left elbow pain occasionally do wake her up at night. She has not attended physical therapy. She has been taking meloxicam 15 mg once a day with relief, which was provided to her by her primary care physician. The patient wears a left wrist brace when her symptoms flares up. 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 The patient is working at [employer]. She works out 5 times a week with weights. Results/DataThree-view x-rays of the left forearm were obtained and interpreted in the office today. There are no fractures. Joint spaces are aligned and congruent. No bony or soft tissue lesions are identified. Forearm axis is appropriate. Assessment1. Resolving left dorsal radial sensory neuritis.2. Left volar forearm pain. Plan X-Ray I Forearm - 2 views (XRays were ordered, obtained and interpreted today in theoffice. Indication: pain/dysfunction.); Status:Complete; Done: 13May2020 Perform:SOS19 (Hand); Due:27May2020; Last Updated By:Charlee Ace; 05/13/2020 1:03:44 PM;Ordered; For:Pain of left forearm; Ordered By:Vy Meza;Laterality: : Left PT/OT/Hand Therapy (SOS) Referral Treatment Treatment Status: Complete Done:13May2020 Ordered;For: Pain of left forearm; Ordered By: Vy eMza Performed: Order Comments: Evaluate and Treat for Left Volar Forearm Pain; Dorsal Radius Sensory Nerve IrritationROM, Strengthening, Stretching and ModalitiesNerve Gliding ExercisesHome Exercise Program Due: 27May2020; Last Updated By: Jennifer Spencer; 05/13/2020 1:33:38 PMPT/OT/Hand Therapy Duration : Six WeeksPT Frequency : Two or three times a week We discussed the status of her dorsal radial sensory nerve. This is chronic and it has been improving with time. I encouraged her to modify any activities that would cause trauma to this area of the wrist and also stay away from any constrictive watch bands or hair ponytail holders on this wrist. We should expect to see some improvement with time. In terms of her volar wrist and forearm discomfort, we have a difficult time reproducing her pain today, but she notes mostly a feeling of stretching along this area that is fairly quiescent today. I would like to start her on a course of hand therapy. She also notes that the meloxicam has been helpful for her that was prescribed by her primary care physician. She can also use her wrist brace as needed. We also discussed modifying some of her extended and loaded positions at the gym. She is happy with this plan. All questions were answered. She will follow up as needed. Scribed by GABI Courtney on 05/13/2020 at 03:24 PM for Vy Meza Signatures Electronically signed by : Gabi Blanc MA; May 13 2020 3:25PM EST (Author) Electronically signed by : Vy Meza M.D.; May 14 2020 12:32PM EST Name Value Range Interpretation Code Description Data Mirta rce(s) Supporting Document(s) ID Date Data Source [id number] 04/06/2020 12:00:00 AM EST [facility] Name Value Range Interpretation Code Description Data Mirta rce(s) Supporting Document(s) SARS-CoV2 Rapid Antigen Negative [facility] This lab was reported by Yared garcia. Procedure Social History Code Duration Value Status Description Data Source(s ) Smoking 11/23/2020 12:00:00 AM EDT Never Smoker completed Never S moker [facility]) Smoking 11/23/2020 12:00:00 AM EDT Never Smoker completed Never S moker eCW1 ([facility]) Smoking 11/23/2020 12:00:00 AM EDT Never Smoker completed Never S moker eCW1 ([facility]) Smoking 04/23/2020 12:00:00 AM EST Never Smoker completed Never S moker eCW1 ([facility]) Smoking 02/23/2020 12:00:00 AM EST Patient has never smoked co mpleted Patient has never smoked MEDENT ([facility]) Vital Signs ID Date Data Source UNK Name Value Range Interpretation Code Description Data Source(s) Body weight 175 [lb_av] 175 [lb_av] eCW1 ([facility]) Body height 62 [in_i] 62 [in_i] eCW1 ([facility]) Body mass index (BMI) [Ratio] 32.00 kg/m2 32.00 kg/m2 e[facility]) Heart rate 64 /min 64 /min eCW1 ([facility]) Respiratory rate 18 /min 18 /min eCW1 ([facility]) Body temperature 98.7 [degF] 98.7 [degF] [facility] ( [facility]) Systolic blood pressure 118 mm[Hg] 118 mm[Hg] e CW1 ([facility]) Diastolic blood pressure 68 mm[Hg] 68 mm[Hg] eCW1 ([facility]) Body weight 177.6 [lb_av] 177.6 [lb_av] eCW1 ([facility]) Body weight 80.56 kg 80.56 kg eCW1 ([facility]) Body height 62 [in_i] 62 [in_i] eCW1 ([facility]) Body mass index (BMI) [Ratio] 32.48 kg/m2 32.48 kg/m2 eCW1 [facility]) Systolic blood pressure 128 mm[Hg] 128 mm[Hg] e CW1 ([facility]) Diastolic blood pressure 86 mm[Hg] 86 mm[Hg] eCW1 ([facility]) Body weight 162 [lb_av] 162 [lb_av] eCW1 ([facility]) Body height 62 [in_i] 62 [in_i] eCW1 ([facility]) Body mass index (BMI) [Ratio] 29.63 kg/m2 29.63 kg/m2 eCW1 ([facility]) Heart rate 104 /min 104 /min eCW1 ([facility]) Respiratory rate 18 /min 18 /min eCW1 ([facility]) Body temperature 98.5 [degF] 98.5 [degF] eCW1 ( [facility]) Systolic blood pressure 134 mm[Hg] 134 mm[Hg] e CW1 ([facility]) Diastolic blood pressure 72 mm[Hg] 72 mm[Hg] eCW1 ([facility]) Systolic blood pressure 116 mm[Hg] 116 mm[Hg] M EDENT ([facility], [facility]) Diastolic blood pressure 80 mm[Hg] 80 mm[Hg] MEDENT ([facility], [facility]) Heart rate 78 /min 78 /min [facility] Respiratory rate 16 /min 16 /min MEDENT ( [facility]) Oxygen saturation in Arterial blood by Pulse oximetry 99 % 99 % MEDENT ([facility]) Body temperature 98.7 [degF] 98.7 [degF] MEDENT ([facility], [facility]) Body weight 159.00 [lb_av] 159.00 [lb_av] MEDEN T ([facility], [facility]) Body height 62 [in_i] 62 [in_i] MEDENT ([facility], [facility]) 5'2" Body mass index (BMI) [Ratio] 29.1 kg/m2 29.1 k g/m2 MEDENT ([facility]) Heart rate 62 /min 62 /min MEDENT ([facility]) Body weight 157.00 [lb_av] 157.00 [lb_av] MEDEN T ([facility]) Oxygen saturation in Arterial blood by Pulse oximetry 98 % 98 % MEDENT ([facility], [facility]) Body height 62 [in_i] 62 [in_i] MEDENT ([facility]) 5'2" Body temperature 971.0 [degF] 971.0 [degF] MEDE NT ([facility]) Body mass index (BMI) [Ratio] 28.7 kg/m2 28.7 k g/m2 MEDENT ([facility]) Systolic blood pressure 126 mm[Hg] 126 mm[Hg] M EDENT ([facility]) Diastolic blood pressure 82 mm[Hg] 82 mm[Hg] [facility]) Respiratory rate 15 /min 15 /min [facility] ( [facility]) Patient Treatment Plan of Care Planned Activity Planned Date Details Description Data Source (s) meloxicam 15 MG Oral Tablet 04/23/2020 12:00:00 AM EST eCW1 ([facility])
[2021-01-04 06:49] LABS: HEMOGLOBIN 12.8 g/dl (12.0-15.5); MEAN CORPUSCULAR HEMOGLOBIN 31.6 pg (27.0-33.0); MEAN CORPUSCULAR HGB CONC 32.8 g/dl (32.0-36.5); MEAN CORPUSCULAR VOLUME 96.3 fl (80.0-96.0); PLATELET COUNT, AUTOMATED 239 10^3/uL (150-450); RED BLOOD COUNT 4.05 10^6/uL (4.00-5.40); WHITE BLOOD COUNT 6.8 10^3/uL (4.0-10.0)
[2021-01-04] MEDS ORDERED: BUPIVACAINE HCL 0.25% 30ML VIAL As Ordered ONE (07:11)
[2021-01-04] MEDS ORDERED: LIDOCAINE 2% 100MG/5ML SDV (FOR ANES.) As Ordered ONE (07:16)
[2021-01-04] MEDS ORDERED: dexameTHASONE 4 MG/ML 1ML VIAL (J1100 PER 1MG) As Ordered ONE (07:16)
[2021-01-04] MEDS ORDERED: propofoL 200 MG/20 ML VIAL As Ordered ONE (07:16)
[2021-01-04] MEDS ORDERED: ROCURONIUM BROMIDE 50 MG/5 ML VIAL As Ordered ONE ×2 (07:16→08:04)
[2021-01-04] MEDS ORDERED: ONDANSETRON 4MG/2ML VIAL As Ordered ONE ×2 (07:16→08:26)
[2021-01-04] MEDS ORDERED: fentaNYL 250 MCG/5 ML INJECTION (J3010) As Ordered ONE (07:17)
[2021-01-04] MEDS ORDERED: MIDAZOLAM INJ 2MG/2ML VIAL (J2250 PER 1MG) As Ordered ONE (07:18)
--- NOTE | 2021-01-04 07:53 | ROOPDOC ---
[facility] Report Of Operation Report of Operation DATE OF PROCEDURE: 01/04/21 PREPROCEDURE DIAGNOSES: 1. Chronic pelvic pain POSTPROCEDURE DIAGNOSES: 1. Chronic pelvic pain PROCEDURES PERFORMED: 1. Robotic-assisted laparoscopic hysterectomy. 2. Bilateral salpingectomy. 3. Cystoscopy. SURGEON: Renato Schultz MD AUTOMATED CUTTING MACHINE OPERATOR: MARGE Molina ANESTHESIA: General endotracheal anesthesia. ESTIMATED BLOOD LOSS: 100 mL. INTRAVENOUS FLUIDS: 900mL lactated Ringer solution. URINE OUTPUT: 100 mL. PREPROCEDURE ANTIBIOTICS: 2g Ancef OPERATIVE FINDINGS: The patient with normal-appearing bilateral adnexa and uterus CYSTOSCOPIC FINDING: Normal bladder mucosa, no foreign objects. Bilateral ureteral jets were observed. SPECIMEN: Uterus, cervix, bilateral fallopian tubes DESCRIPTION OF PROCEDURE: After informed consent was obtained and written consent was reviewed, the patient was brought to the operating room, where general endotracheal anesthesia was obtained. She was then placed in lithotomy position, was prepped and draped in a normal sterile fashion. A time-out in the operating room was then performed, identifying the patient, procedure to be performed, as well as drug allergies. A speculum was then placed, revealing the cervix. The anterior and posterior aspects of the cervix were stitched with a 0 Vicryl. The uterus was then sounded to 9 cm. A large [employer] uterine manipulator was then advanced through the cervical os for means to manipulate the uterus. The cervical cap was applied over the cervix, as well as the vaginal sleeve applied into the vagina. The speculum was removed from the patients vagina. A Stanley catheter was then placed and set to gravity. Gloves were changed, and attention was turned to the patients abdomen, where a Veress needle was placed through the umbilicus. A pneumoperitoneum was then obtained with CO2 gas. The supraumbilical area was infused with 0.25% Marcaine. An incision was made in this area, and a 8 mm trocar and sleeve was advanced through this incision. The laparoscope was then replaced, revealing intra-abdominal placement. Three additional port sites were placed, two to the left side of the patient's abdomen and one to the right. These areas was infused with 0.25% Marcaine. Each one of these areas, incisions were made, and 8 mm trocars and sleeves advanced through each one of these incisions under direct visualization. Next, the da Marcela was then docked, utilizing a camera arm and two operative arms. The patient's abdomen was then surveyed with the above-noted finding. Bilateral salpingectomies were then performed. The fallopian tubes' mesosalpinx was cauterized and ligated with hemostasis noted. Next, the uteroovarian ligaments bilateral were cauterized and ligated with good hemostasis noted. The round ligaments bilaterally were cauterized and ligated with good hemostasis noted. The anterior and posterior aspects of broad ligaments were . The anterior leaf of the broad ligament was cauterized and ligated and dissected along the bladder, creating a bladder flap. The remainder of the broad and cardinal ligaments were then cauterized and ligated with good hemostasis noted. The uterine arteries were skeletonized bilaterally and were cauterized and transected with good hemostasis noted. Anterior and posterior colpotomies were made using monopolar scissors. The uterus was then brought out through the vaginal incision. The surgical sites were inspected and noted to be hemostatic. The vaginal cuff was then closed using 2-0 V-Loc system in a running fashion. Carlie was then applied over the surgical field. The pneumoperitoneum was then released. Next, the cystoscopy was then performed. Utilizing a 70-degree cystoscope, it was advanced transurethrally through the bladder. The bladder was surveyed, showing normal bladder mucosa, no foreign bodies. The bilateral ureteral jets were observed. The cystoscope was then removed. The bladder was then drained. Gloves were changed. Attention was then turned to the patients abdomen, where all four port sites were closed with 4-0 Monocryl and dressed with Dermabond. The patient was then taken out of lithotomy position and was awakened from general anesthesia and taken to recovery in stable condition. Counts were correct. Marisel Andersen, my surgical technician, played a central role in the operation. She assisted with port placement, tissue retraction and identification, as well as wound closure. RENATO SCHULTZ MD. Jan 04, 2021 07:52
[2021-01-04] MEDS ORDERED: GLYCOPYRROLATE INJ 0.2 MG/ML 2 ML VIAL As Ordered ONE (07:55)
[2021-01-04] MEDS ORDERED: HYDROmorphone HCL 2 MG/ML 1ML VIAL As Ordered ONE (08:18)
[2021-01-04] MEDS ORDERED: SUGAMMADEX SODIUM 500 MG/5 ML VIAL (BRIDION) As Ordered ONE (08:18)
[2021-01-04] MEDS ORDERED: ACETAMINOPHEN 1000MG 100ML IV BTL (OFIRMEV) (J0131 PER 10MG) As Ordered ONE (08:18)
[2021-01-04] MEDS ORDERED: LACRILUBE (AKWA TEARS) OPHTH OINT 3.5 GM As Ordered ONE (08:18)
[2021-01-04] MEDS ORDERED: KETOROLAC 60MG 2ML VIAL As Ordered ONE (08:19)
[2021-01-04] MEDS ORDERED: PERCOCET 5MG/325MG TAB PO PRN ×2 (09:45→09:50)
[2021-01-04] MEDS ORDERED: MEPERIDINE INJ 25 MG/ML VIAL (J2175) IV PRN (09:45)
[2021-01-04] MEDS ORDERED: ONDANSETRON 4MG/2ML VIAL IV PRN (09:45)
[2021-01-04] MEDS ORDERED: PROMETHAZINE INJ 25 MG/ML VIAL (J2550) IV PRN (09:45)
[2021-01-04] MEDS ORDERED: LR 1,000 ML IV SCH (09:45)
[2021-01-04] MEDS ORDERED: fentaNYL 100 MCG/2 ML INJECTION (J3010) IV PRN (09:45)
[2021-01-04] MEDS ORDERED: HYDROMORPHONE HCL 0.5 MG/ 0.5 ML SYRINGE (J1170 PER 1) IV PRN (09:45)
[2021-01-04 13:46] VITALS: BP 110/63
[2021-01-04] MEDS ORDERED: KETOROLAC 30 MG/ML 1ML VIAL IV SCH (15:00)
== END 2021-01-04 14:10 | disposition home or self-care (01) ==
LOC: M SDC 06:16
PROVIDERS: ATTEND Obstetrics & Gynecology
DX: N72 Inflammatory disease of cervix uteri (principal); K44.9 Diaphragmatic hernia without obstruction or gangrene; K21.9 Gastro-esophageal reflux disease without esophagitis; J45.909 Unspecified asthma, uncomplicated; Z88.2 Allergy status to sulfonamides; Z97.5 Presence of (intrauterine) contraceptive device
CPT/HCPCS: 36415; 58571; 81025; 85027; 86850; 86900; 86901; 88307; J0131; J0690; J1100; J1170; J1885; J2250; J2405; J3010; S2900

== ENCOUNTER → 2021-02-16 | Outpatient (REF) | payer BC ==
[~2021-02-16] MED LIST changes: -LIDOCAINE 1% MDV 20ML VIAL SQ PRN; -LR 1,000 ML IV ONE; -ceFAZolin SOD 2 GM in IV 1 EA IV ONE
[2021-02-16 13:48] LABS: APPEARANCE, URINE TURBID (CLEAR); BACTERIA, URINE AUTO NEGATIVE (NEGATIVE); BILIRUBIN, URINE AUTO NEGATIVE (NEGATIVE); BLOOD, URINE BLOOD 2+ (NEGATIVE); CALCIUM OXALATE CRYSTALS SMALL; COLOR, URINE AMBER (YELLOW); GLUCOSE, URINE (UA) AUTO NEGATIVE (NEGATIVE); KETONE, URINE AUTO NEGATIVE (NEGATIVE); LEUKOCYTE ESTERASE, URINE AUTO 3+ (NEGATIVE); MUCUS, URINE SMALL (NEGATIVE); NITRITE, URINE AUTO NEGATIVE (NEGATIVE); PROTEIN, URINE AUTO NEGATIVE (NEGATIVE); RBC, URINE AUTO 3 /HPF (0-3); SPECIFIC GRAVITY URINE AUTO 1.019 (1.002-1.035); SQUAMOUS EPITHELIAL CELL UR AU 11 /HPF (0-6); UROBILINOGEN, URINE AUTO 0.2 mg/dL (0.0-2.0); WBC, URINE AUTO 12 /HPF (0-3)
== END ==
LOC: M SFHCWAGY 12:48
PROVIDERS: ATTEND Obstetrics & Gynecology
DX: R30.0 Dysuria (principal)

== ENCOUNTER → 2022-12-26 | Outpatient (CLI) | payer OTHER | LOC: M WHC 07:33 | PROVIDERS: ATTEND Physician Assistant Medical | DX: Z12.31 Encounter for screening mammogram for malignant neoplasm of breast (principal) ==

== ENCOUNTER → 2023-01-04 | Outpatient (CLI) | payer OTHER | LOC: M WHC 07:51 | PROVIDERS: ATTEND Physician Assistant Medical | DX: Z12.31 Encounter for screening mammogram for malignant neoplasm of breast (principal) ==

== ENCOUNTER 2023-11-15 17:44 | Emergency (ER) | payer OTHER ==
[~2023-11-15] VITALS: Ht 157.5 cm; Wt 78.2 kg
[2023-11-15 17:44] VITALS: TEMP 99
[~2023-11-15 17:44] MED LIST changes: +ONDA-282 PO; -ONDA4TAB6 PO
[2023-11-15 18:31] LABS: BASO % 0.6 % (0.0-1.0); EOS # 0.4 10^3/uL (0.0-0.5); EOS % 5.4 % (0.0-3.0); HEMATOCRIT 36.1 % (36.0-47.0); HEMOGLOBIN 12.4 g/dl (12.0-15.5); LYMPH # 2.3 10^3/uL (1.5-5.0); LYMPH % 33.9 % (24.0-44.0); MEAN CORPUSCULAR HEMOGLOBIN 31.6 pg (27.0-33.0); MEAN CORPUSCULAR HGB CONC 34.3 g/dl (32.0-36.5); MEAN CORPUSCULAR VOLUME 91.9 fl (80.0-96.0); MONO # 0.6 10^3/uL (0.0-0.8); MONO % 8.3 % (2.0-8.0); NEUTROPHILS # 3.4 10^3/uL (1.5-8.5); NEUTROPHILS % 51.5 % (36.0-66.0); PLATELET COUNT, AUTOMATED 241 10^3/uL (150-450); RED BLOOD COUNT 3.93 10^6/uL (4.00-5.40); WHITE BLOOD COUNT 6.6 10^3/uL (4.0-10.0)
[2023-11-15 18:54] LABS: LIPASE 33 U/L (12-53)
[2023-11-15 18:56] LABS: ALBUMIN 3.6 G/DL (3.2-5.2); ALKALINE PHOSPHATASE 53 U/L (46-116); ALT/SGPT 20 U/L (7.0-40); AST/SGOT 11 U/L (<34); BILIRUBIN,DIRECT 0.1 MG/DL (<0.4); BILIRUBIN,TOTAL 0.5 MG/DL (0.3-1.2); BLOOD UREA NITROGEN 12 MG/DL (9-23); CALCIUM LEVEL 9.4 MG/DL (8.5-10.1); CARBON DIOXIDE LEVEL 28 MMOL/L (20-31); CHLORIDE LEVEL 107 MMOL/L (98-107); CREATININE FOR GFR 0.65 MG/DL (0.55-1.30); GLOMERULAR FILTRATION RATE > 60.0 (>60); GLUCOSE, FASTING 88 MG/DL (60-100); POTASSIUM SERUM 3.9 MMOL/L (3.5-5.1); SODIUM LEVEL 141 MMOL/L (136-145); TOTAL PROTEIN 6.7 G/DL (5.7-8.2)
[2023-11-15 19:05] LABS: HCG, SERUM QUALITATIVE NEGATIVE (NEGATIVE)
[2023-11-15] MEDS ORDERED: ISOVUE-370 76% 100ML VIAL As Ordered ONE (20:51)
[2023-11-15] MEDS ORDERED: NAPR-837 PO (22:15)
[2023-11-15 22:28] VITALS: O2SAT 99
[2023-11-15 22:29] VITALS: BP 116/72
== END 2023-11-15 22:31 | disposition home or self-care (01) ==
LOC: M ED 17:44
DX: N83.202 Unspecified ovarian cyst, left side (principal); J45.909 Unspecified asthma, uncomplicated; Z88.2 Allergy status to sulfonamides; Z79.810 Long term (current) use of selective estrogen receptor modulators (SERMs); Z79.899 Other long term (current) drug therapy
CPT/HCPCS: 36415; 74177; 76856; 80048; 80076; 81001; 83605; 83690; 84703; 85025; 93976; 99284; Q9967

== ENCOUNTER → 2024-03-28 | Outpatient (CLI) | payer OTHER, SELFPAY ==
[~2024-03-28] MED LIST changes: +NAPR-837 PO
== END ==
LOC: M WHC 10:19
PROVIDERS: ATTEND Physician Assistant Medical
DX: N83.202 Unspecified ovarian cyst, left side (principal)

== ENCOUNTER → 2024-05-02 | Outpatient (CLI) | payer OTHER | LOC: M WHC 07:05 | PROVIDERS: ATTEND Physician Assistant Medical | DX: D24.2 Benign neoplasm of left breast (principal) ==

== ENCOUNTER → 2024-09-11 | Outpatient (CLI) | payer OTHER ==
[2024-09-11 15:43] LABS: BASO # 0.1 10^3/uL (0.0-0.2); BASO % 1.3 % (0.0-1.0); EOS # 0.3 10^3/uL (0.0-0.5); EOS % 5.0 % (0.0-3.0); LYMPH # 2.2 10^3/uL (1.5-5.0); LYMPH % 35.9 % (24.0-44.0); MONO # 0.6 10^3/uL (0.0-0.8); MONO % 9.5 % (2.0-8.0); NEUTROPHILS # 3.0 10^3/uL (1.5-8.5); NEUTROPHILS % 48.0 % (36.0-66.0); PLATELET COUNT, AUTOMATED 301 10^3/uL (150-450)
[2024-09-11 15:53] LABS: ERYTHROCYTE SEDIMENTATION RATE 7 mm/hr (0-20)
[2024-09-11 16:15] LABS: COMPLEMENT C4 29.3 MG/DL (12-36); IRON (FE) 113 UG/DL (50-170); PERCENT SATURATION 38.2 % (13.2-45.0); RHEUMATOID FACTOR QUANT < 3.5 IU/ML (<14)
[2024-09-11 16:40] LABS: ALT/SGPT 25 U/L (7.0-40); AST/SGOT 21 U/L (<34); CALCIUM LEVEL 9.6 MG/DL (8.5-10.1); CARBON DIOXIDE LEVEL 30 MMOL/L (20-31); CHLORIDE LEVEL 102 MMOL/L (98-107); CREATININE FOR GFR 0.77 MG/DL (0.55-1.30); FREE T4 1.34 NG/DL (0.89-1.76); GLOMERULAR FILTRATION RATE > 90.0 (>60); POTASSIUM SERUM 4.9 MMOL/L (3.5-5.1); SODIUM LEVEL 142 MMOL/L (136-145); THYROID PEROXIDASE ANTIBODY < 28.0 U/ML (<60.0); TOTAL 25(OH) VITAMIN D 41.3 NG/ML (20.0-100.0); VITAMIN B12 LEVEL 931 PG/ML (211-911)
== END ==
LOC: M PLALAB 12:49
PROVIDERS: ATTEND Physician Assistant Medical
DX: D50.8 Other iron deficiency anemias (principal); F51.01 Primary insomnia; R52 Pain, unspecified; R53.83 Other fatigue

== ENCOUNTER → 2024-10-15 | Outpatient (CLI) | payer OTHER ==
[~2024-10-15] MED LIST changes: +AFRISPR3; +ALBU8.5H; +FLON1SPR; +JUNETAB PO; +MULTTAB61 PO; +ZYRTTAB8 PO
== END ==
LOC: M SOG 06:52
PROVIDERS: ATTEND Physician Assistant
DX: M25.531 Pain in right wrist (principal)

== ENCOUNTER 2024-10-30 06:05 | Day surgery (SDC) | payer OTHER ==
[~2024-10-30] VITALS: Ht 157.5 cm; Wt 87.9 kg
[2024-10-30 06:36] LABS: PLATELET COUNT, AUTOMATED 245 10^3/uL (150-450)
[2024-10-30] MEDS ORDERED: COLA100C5 PO (06:44)
[2024-10-30] MEDS ORDERED: MIDAZOLAM INJ 2 MG/2 ML VIAL As Ordered ONE (06:52)
[2024-10-30] MEDS ORDERED: ROCURONIUM BROMIDE 50MG/5ML VIAL As Ordered ONE (06:55)
[2024-10-30] MEDS ORDERED: LIDOCAINE 2% 100 MG/5 ML SDV (FOR ANES.) As Ordered ONE (06:56)
[2024-10-30] MEDS ORDERED: dexAMETHasone 4 MG/ML 1 ML VIAL As Ordered ONE (06:57)
[2024-10-30] MEDS ORDERED: ONDANSETRON 4MG 2ML VIAL As Ordered ONE (06:58)
[2024-10-30] MEDS: LR 1,000 ML IV SCH (07:02)
[2024-10-30] MEDS: SCOPOLAMINE 1MG TRANSDERMAL PATCH TOP ONE (07:05)
[2024-10-30] MEDS ORDERED: ACETAMINOPHEN 1000MG/100ML IV BAG As Ordered ONE (07:09)
[2024-10-30] MEDS ORDERED: dexmedeTOMIDine (4 MCG/ML) 200 MCG/50 ML BTL As Ordered ONE (07:09)
[2024-10-30] MEDS ORDERED: SUGAMMADEX SODIUM 500 MG/5 ML VIAL As Ordered ONE (07:15)
[2024-10-30] MEDS ORDERED: KETOROLAC 30 MG/ML 1 ML VIAL As Ordered ONE (07:15)
[2024-10-30] MEDS ORDERED: HYDROMORPHONE HCL 0.5 MG/0.5 ML SYRINGE IV PRN (08:30)
[2024-10-30] MEDS ORDERED: LR 1,000 ML IV SCH (08:30)
[2024-10-30] MEDS ORDERED: ONDANSETRON 4MG 2ML VIAL IV PRN (08:30)
[2024-10-30 10:00] VITALS: BP 122/76; TEMP 97.6; O2SAT 100
== END 2024-10-30 10:10 | disposition home or self-care (01) ==
LOC: M SDC 06:05
PROVIDERS: ATTEND Obstetrics & Gynecology
DX: D27.0 Benign neoplasm of right ovary (principal); Z88.2 Allergy status to sulfonamides; Z79.899 Other long term (current) drug therapy
CPT/HCPCS: 36415; 58661; 85027; 86850; 86900; 86901; 88305; J0131; J0665; J1100; J1885; J2250; J2405; J3010

== ENCOUNTER → 2025-01-29 | Outpatient (CLI) | payer OTHER | LOC: M ADAMS 11:48 | PROVIDERS: ATTEND Family Medicine | DX: S49.91XA Unspecified injury of right shoulder and upper arm, initial encounter (principal); Y93.9 Activity, unspecified; Y92.9 Unspecified place or not applicable ==